=== PATIENT | female | born 1985 | race Caucasian/White ===

== ENCOUNTER → 2016-07-11 | Outpatient (CLI) | payer OTHER ==
[~2016-07-11] MED LIST: CLR10 PO; NIFE30TA83 PO
== END | disposition home or self-care (01) ==
LOC: C.LABSPEC 13:14
PROVIDERS: ATTEND Dermatology
DX: B95.8 Unspecified staphylococcus as the cause of diseases classified elsewhere (principal); L01.00 Impetigo, unspecified

== ENCOUNTER → 2016-10-09 | Outpatient (CLI) | payer OTHER | END | disposition home or self-care (01) | LOC: C.LABSPEC 16:48 | PROVIDERS: ATTEND Dermatology | DX: B95.8 Unspecified staphylococcus as the cause of diseases classified elsewhere (principal) ==